=== PATIENT | female | born 2005 | race Hispanic/Latino ===

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

== ENCOUNTER 2024-09-17 21:49 | Emergency (ER) | payer SELFPAY ==
[~2024-09-17] VITALS: Ht 154.9 cm; Wt 56.7 kg
--- NOTE | 2024-09-17 21:54 | NUR ---
COIVD, FLU AND STREP SWABS COLLECTED AND SENT UA CUP PROVIDED
[2024-09-17 22:15] LABS: RAPID GROUP A STREP negative (NEGATIVE)
[2024-09-17 22:21] LABS: SARS-CoV-2, RNA, NAAT NEGATIVE SARS CoV-2 (NEGATIVE)
[2024-09-17 22:26] LABS: INFLUENZA TYPE A Negative For Type A (NEGATIVE); INFLUENZA TYPE B Negative For Type B (NEGATIVE)
[2024-09-17 22:58] LABS: APPEARANCE,URINE CLOUDY (CLEAR); BILIRUBIN,URINE NEGATIVE (NEGATIVE); COLOR,URINE YELLOW (YELLOW); GLUCOSE, URINE (UA) NEGATIVE (NEGATIVE); KETONES,URINE 150 mg/dL (NEGATIVE); LEUKOCYTE ESTERASE ,URINE 25 Leu/uL (NEGATIVE); NITRATE,URINE NEGATIVE (NEGATIVE); OCCULT BLOOD,URINE LARGE (NEGATIVE); PH,URINE 5.5 (5.0-8.0); PROTEIN,URINE 50 mg/dL (NEGATIVE); UROBILINOGEN,URINE 0.2 mg/dL (0.2-1.0)
[2024-09-17 23:02] LABS: ADD UA MICROSCOPIC YES; HCG,QUALITATIVE URINE NEGATIVE (NEGATIVE)
[2024-09-17 23:05] LABS: BACTERIA,URINE FEW /HPF (None Seen); MUCUS,URINE MANY LPF (None Seen); RBC,URINE 26-50 /HPF (0-1); SQUAMOUS EPITHELIAL CELL,UR MANY /HPF (0-2)
[2024-09-17] MEDS: 0.9%NACL 1000ML 1,000 ML IV ONE (23:18)
[2024-09-17] MEDS: FAMOTIDINE 20MG VIAL IV ONE (23:18)
[2024-09-17] MEDS: ondanSETRON 4MG INJ IVP ONE (23:18)
[2024-09-17 23:34] LABS: BASOPHILS # (AUTO) 0.01 K/uL (0.00-0.20); BASOPHILS % (AUTO) 0.2 % (0.0-5.0); EOSINOPHILS # (AUTO) 0.05 K/uL (0.00-0.70); HEMATOCRIT 42.7 % (36-48); IMMATURE GRANULOCYTE ABSOLUTE 0.02 K/uL (0-1); LYMPHOCYTES # (AUTO) 1.7 K/uL (1.0-4.8); LYMPHOCYTES % (AUTO) 32.8 % (21.0-51.0); MEAN CORPUSCULAR HEMOGLOBIN 27.8 pg (27.0-33.0); MEAN CORPUSCULAR HGB CONC 32.8 g/dL (32.0-36.0); MEAN CORPUSCULAR VOLUME 84.9 fL (80-100); MONOCYTES # (AUTO) 0.6 K/uL (0.1-1.0); MONOCYTES % (AUTO) 11.5 % (3.0-13.0); NEUTROPHILS # (AUTO) 2.8 K/uL (1.8-7.7); NEUTROPHILS % (AUTO) 54.1 % (40.0-77.0); PLATELET COUNT (AUTO) 244 K/uL (130-400); RED BLOOD CELL COUNT(AUTO) 5.03 MIL/uL (4.00-5.50); RED CELL DISTRIBUTION WIDTH 12.9 % (11.0-15.5); WHITE BLOOD COUNT (AUTO) 5.1 K/uL (4.8-10.8)
[2024-09-17 23:59] LABS: ALBUMIN 3.9 g/dL (3.5-5.0); BILIRUBIN,DIRECT 0.1 mg/dL (0.0-0.3); BILIRUBIN,TOTAL 0.5 mg/dL (0.2-1.0); CREATININE 0.9 mg/dL (0.5-1.0); TOTAL PROTEIN, SERUM 8.2 g/dL (6.0-8.3)
[2024-09-18 00:11] LABS: POTASSIUM 2.7 mmol/L (3.5-5.1)
[2024-09-18] MEDS: PoTASSium BIcarbonate/CIT AC 25 MEQ TABLET.EFF PO ONE (00:24)
[2024-09-18] MEDS ORDERED: ONDA-243 PO (00:33)
[2024-09-18] MEDS ORDERED: FAMO-136 PO (00:34)
[2024-09-18] MEDS ORDERED: MACR100 PO (00:34)
--- NOTE | 2024-09-18 00:36 | ERN ---
General Chief Complaint: Multiple Complaints Stated Complaint: ABD PAIN, VOMITING,HEADACHE Time Seen by MD: 22:06 Time Seen by Midlevel: 22:06 Source: patient History of Present Illness Initial Comments The patient is a 19-year-old female with no significant past medical history presenting to the emergency department for evaluation of nausea, vomiting, monik rrhea that started two days ago. Patient developed abdominal cramping today which prompted the emergency department visit. Patient denies any other symptoms at this time. Patient states her boyfriend ate the same food in his sick with similar symptoms. Allergies: Coded Allergies: No Known Allergies (Unverified Allergy, Unknown, 09/17/24) Past Medical History Past Medical History: No Pertinent History Past Surgical History: Other Surgical History Other: LEFT OVARY Female( History) LMP: Aug 18, 2024 Results Laboratory and Microbiology Lab and Micro Result Laboratory Tests Test 09/17/24 21:54 09/17/24 22:41 09/17/24 23:26 Influenza Type A Antigen Negative For Type A Influenza Type B Antigen Negative For Type B SARS-CoV-2, RNA, NAAT NEGATIVE SARS CoV-2 Group A Streptococcus Rapid negative (NEGATIVE) Urine Color YELLOW (YELLOW) Urine Appearance CLOUDY (CLEAR) H Urine pH 5.5 (5.0-8.0) Urine Specific Wylie 1.041 (1.001-1.031) Urine Protein 50 mg/dL (NEGATIVE) H Urine Glucose (UA) NEGATIVE mg/dL (NEGATIVE) Urine Ketones 150 mg/dL (NEGATIVE) H Urine Occult Blood LARGE (NEGATIVE) H Urine Nitrate NEGATIVE (NEGATIVE) Urine Bilirubin NEGATIVE mg/dL (NEGATIVE) Urine Urobilinogen 0.2 mg/dL (0.2-1.0) Urine Leukocyte Esterase 25 Jacinto/uL (NEGATIVE) H Urine RBC 26-50 /HPF (0-1) H Urine WBC 11-25 /HPF (0-1) H Urine Squamous Epithelial Cells MANY /HPF (0-2) Urine Bacteria FEW /HPF (None Seen) Urine HCG, Qualitative NEGATIVE (NEGATIVE) White Blood Count 5.1 K/uL (4.8-10.8) Red Blood Count 5.03 MIL/uL (4.00-5.50) Hemoglobin 14.0 g/dL (12.0-16.0) Hematocrit 42.7 % (36-48) Mean Corpuscular Volume 84.9 fL (80-100) Mean Corpuscular Hemoglobin 27.8 pg (27.0-33.0) Mean Corpuscular Hemoglobin Concent 32.8 g/dL (32.0-36.0) Red Cell Distribution Width 12.9 % (11.0-15.5) Platelet Count 244 K/uL (130-400) Mean Platelet Volume 11.0 fL (7.5-10.5) H Immature Granulocyte % (Auto) 0.4 % (0-1) Neutrophils (%) (Auto) 54.1 % (40.0-77.0) Lymphocytes (%) (Auto) 32.8 % (21.0-51.0) Monocytes (%) (Auto) 11.5 % (3.0-13.0) Eosinophils (%) (Auto) 1.0 % (0.0-8.0) Basophils (%) (Auto) 0.2 % (0.0-5.0) Neutrophils # (Auto) 2.8 K/uL (1.8-7.7) Lymphocytes # (Auto) 1.7 K/uL (1.0-4.8) Monocytes # (Auto) 0.6 K/uL (0.1-1.0) Eosinophils # (Auto) 0.05 K/uL (0.00-0.70) Basophils # (Auto) 0.01 K/uL (0.00-0.20) Absolute Immature Granulocyte (auto 0.02 K/uL (0-1) Nucleated Red Blood Cells 0.0 % (0.0-0.19) Sodium Level 136 mmol/L (136-145) Potassium Level 2.7 mmol/L (3.5-5.1) *L Chloride Level 99 mmol/L (101-111) L Carbon Dioxide Level 30 mmol/L (21-32) Blood Urea Nitrogen 14 mg/dL (7-18) Creatinine 0.9 mg/dL (0.5-1.0) Glomerular Filtration Rate Calc 94 mL/min (>90) Random Glucose 90 mg/dL (70-105) Total Calcium 8.5 mg/dL (8.5-10.1) Total Bilirubin 0.5 mg/dL (0.2-1.0) Direct Bilirubin 0.1 mg/dL (0.0-0.3) Aspartate Amino Transf (AST/SGOT) 20 U/L (10-37) Alanine Aminotransferase (ALT/SGPT) 9 U/L (12-78) L Alkaline Phosphatase 72 U/L (50-136) Total Protein 8.2 g/dL (6.0-8.3) Albumin 3.9 g/dL (3.5-5.0) Lipase 23 U/L (16-77) Serum Test, Qualitative NEGATIVE (NEGATIVE) MDM MDM: The patient is a 19-year-old female with no significant past medical history presenting to the emergency department for evaluation of nausea, vomiting, diarrhea that started two days ago. Patient developed abdominal cramp ing today which prompted the emergency department visit. Patient denies any other symptoms at this time. Patient states her boyfriend ate the same food in his sick with similar symptoms. Physical examination patient is in no acute respiratory distress. She was mild diffuse abdominal tenderness with no rebound or guarding. CBC shows no anemia, no thrombocytopenia, no leukocytosis. Chemistries reveal hypokalemia with a potassium of 2.7. This was replaced with 50 mg of effervescent p.o.. Patient was started on 1 L of IV fluids and given Zofran and Pepcid IV. She does report feeling significantly improved. Your urinalysis shows evidence of infection. Respiratory swabs are negative. Her symptoms are most likely related to the food she ate. We will discharged home with a diagnosis of viral gastroenteritis and UTI. Differential diagnosis: Gastroenteritis, pancreatitis, acute cholecystitis, urinary tract infection There are no social concerns with this patient. Prescription drug management Prescriptions will include: Zofran, Pepcid, Macrobid Medical management and examination interpretation discussions were had by me with other qualified healthcare professionals as indicated for the patient's care. ED Course Orders Procedure Category Date Status Time Covid Rna Naat LAB 09/17/24 Complete 21:53 Influenza Type A & B, LAB 09/17/24 Complete Rapid 21:53 Rapid (Group A Strep) LAB 09/17/24 Complete 21:53 Urinalysis Profile LAB 09/17/24 Complete 21:53 ,Urine Test LAB 09/17/24 Complete 21:53 Cbc With Differential LAB 09/17/24 Complete 23:02 Basic Metabolic Panel LAB 09/17/24 Complete 23:02 Hepatic Function Panel LAB 09/17/24 Complete 23:02 Lipase LAB 09/17/24 Complete 23:02 Testing, LAB 09/17/24 Complete Serum Hcg 23:02 Culture Urine CAROLINE 09/17/24 In Process 23:06 0.9%Nacl 1000ml (Ns PHA 09/17/24 Complete 1000ml) 23:30 Ondansetron 4mg Inj PHA 09/17/24 Complete (Zofran 4mg Inj) 23:30 Famotidine 20mg Vial PHA 09/17/24 Complete (Pepcid 20mg Vial) 23:30 Potassium Bicarb/Cit PHA 09/18/24 In Process Ac 25meq (K-Lyte Ta 00:30 Current Medications Medications (Trade) Dose Ordered Sig/Terry Route PRN Reason Start Time Stop Time Status Last Admin Dose Admin Famotidine (Pepcid 20mg Vial) 20 mg ONCE ONCE IV 09/17/24 23:30 09/17/24 23:31 DC 09/17/24 23:18 Ondansetron HCl (zoFRAN 4MG INJ) 4 mg ONCE ONCE IVP 09/17/24 23:30 09/17/24 23:31 DC 09/17/24 23:18 Potassium Bicarbonate (K-Lyte Tablet Eff 25 Meq Tablet.eff) 50 meq ONCE ONCE PO 09/18/24 00:30 09/18/24 00:31 09/18/24 00:24 Sodium Chloride 1,000 ml @ 0 mls/hr ONCE ONCE IV 09/17/24 23:30 09/17/24 23:31 DC 09/17/24 23:18 Vital Signs Date Time Temp Pulse Resp B/P (MAP) Pulse Ox O2 Delivery O2 Flow Rate FiO2 09/17/24 22:42 99.0 84 20 128/69 98 Room Air* 0 21 09/17/24 21:50 98.8 77 16 124/78 100 Room Air DX & DISP Disposition: Discharge Departure Impression: Primary Impression: Viral gastroenteritis Additional Impressions: Hypokalemia, Urinary tract infection Condition: Stable Scripts Nitrofurantoin/Nitrofuran Mac (Macrobid) 100 Mg Cap 1 CAP PO BID for 7 Days, #14 CAP 0 Refills Prov: PHILLY KELLY 09/18/24 Famotidine (Pepcid) 20 Mg Tablet 1 TAB PO BID for 10 Days, #20 TAB 0 Refills Prov: PHILLY KELLY 09/18/24 Ondansetron (Ondansetron Odt) 4 Mg Tab.rapdis 4 MG PO BID for 7 Days, #14 TAB Prov: PHILLY KELLY 09/18/24 Additional Instructions: Your blood work today reveals a low potassium which can result from vomiting and diarrhea. Your potassium was replaced in the emergency department. The remainder of your blood work is unremarkable. No evidence of pancreatitis or any other biliary obstruction. Your symptoms are most likely related to something you ate. Your urinalysis does show evidence of infection. You have tested negative for influenza a, influenza B, COVID-19, and strep. Has sent you home with a prescription for Zofran and Pepcid which should help improve your abdominal discomfort. I have also given you a prescription for your urinary tract infection. Please follow up with your primary care doctor in 2-3 days for repeat evaluation. Referrals: JEANNIE WASHBURN (PCP) I have reviewed the case, and I agree with, Diagnosis and Plan I performed the substantive portion of the visit. I have reviewed and personally made and approve the management plan that is documented in the note by myself or the KARLA. I acknowledge for responsibility for the patient's management plan. PHILLY KELLY Sep 18, 2024 00:36
[2024-09-18 00:37] VITALS: BP 127/65; PULSE 82; RESP 18; TEMP 98.1; O2SAT 98
== END 2024-09-18 00:47 | disposition home or self-care (01) ==
LOC: EDH 21:49
DX: A08.4 Viral intestinal infection, unspecified (principal); E87.6 Hypokalemia; N39.0 Urinary tract infection, site not specified; Z20.822 Contact with and (suspected) exposure to COVID-19
CPT/HCPCS: 99284; 96374; 87635; 96361; 96375; 80076; 80048; 84703; 83690; 85025; 87086; 87880; 87804 ×2; 81001; 81025; 36415; J3490; J7030; J2405